=== PATIENT | female | born 1965 | race Caucasian/White ===

== ENCOUNTER 2016-11-10 20:04 | Emergency (ER) | payer OTHER ==
[~2016-11-10] VITALS: Ht 154.9 cm; Wt 55.0 kg
[~2016-11-10 20:04] MED LIST: BEYATAB PO; CYCL1TAB29 PO; SERT-129 PO; TRAZ100T4 PO
[2016-11-10 20:25] VITALS: BP 92/48; PULSE 52; RESP 20; O2SAT 98
[2016-11-10 20:30] VITALS: BP_SYST 104; BP_SYST 99; BP_DIAS 46; BP_DIAS 54; PULSE 53; RESP 20; O2SAT 97
[2016-11-10] MEDS ORDERED: ASPIRIN 81 MG CHEW TAB PO ONE (20:30)
[2016-11-10] MEDS ORDERED: SODIUM CHLOR 0.9% 1000 ML INJ 1,000 ML IV ONE (20:30)
[2016-11-10] MEDS ORDERED: PANTOPRAZOLE SODIUM 40 MG VIAL IV PUSH ONE (20:30)
--- NOTE | 2016-11-10 20:30 | PD ---
HPI Chief Complaint: Chest Pain Time Seen by Provider: 20:22 Travel History International Travel<30 days: No Contact w/Intl Traveler<30days: No Traveled to known affect area: No History of Present Illness HPI 51-year-old female presents to the emergency department by private transportation the care of her spouse for evaluation of retrosternal chest pain radiating into her back. Patient denies fever chills nausea vomiting sweats or shortness of breath. Patient also complains of upper abdominal pain. Patient is very upset because approximately one month ago she had a similar episode and was not seen at the time but followed up with her primary care provider who told her she may have had a heart attack and that she needed to have a stress test and to follow-up with a medical secretary receptionist. Patient has not been able to arrange this appointment. Patient also is being evaluated by her food trades assistants for possible abnormal vaginal bleeding with plan to have biopsy. Patient is concerned that she may have cancer. Patient denies any prior history of peptic ulcer disease call stones or biliary colic or pancreatitis. reports that she has been in a alcohol abstinence program for 11 months. Patient has no other substance history. Patient is a nonsmoker. Patient denies personal history of hypertension dyslipidemia diabetes or family history of premature onset heart disease. Patient also denies clotting disorder or recent protracted bedrest surgical procedure or long distance travel. Patient states that she actually runs a very low blood pressure as her normal blood pressure. Patient denies other concerns or complaints. Patient rates pain as severe. PFSH Past Medical History Narrative Medical Anxiety depression Social History Tobacco Use: No Allergies-Medications (Allergen,Severity, Reaction): Coded Allergies: No Known Allergies (Unverified , 10/29/16) Reported Meds & Prescriptions Reported Meds & Active Scripts Active Zofran Odt (Ondansetron Odt) 4 Mg Tab 4 Mg SL Q6HR PRN Trazodone (Trazodone HCl) 100 Mg Tab 100 Mg PO HS Beyaz (Drospirenone-Ethinyl Estradiol-Levomefolate) 3-0.02-0.451 Mg Tab 1 Tab PO DAILY Reported Sertraline (Sertraline HCl) 100 Mg Tab 100 Mg PO HS Review of Systems Except as stated in HPI: all other systems reviewed are Neg General / Constitutional: No: Fever, Chills HENT: No: Congestion Cardiovascular: No: Chest Pain or Discomfort Respiratory: No: Shortness of Breath ( ) Gastrointestinal: Positive: Abdominal Pain, No: Nausea, Vomiting Genitourinary: No: Flank Pain Musculoskeletal: No: Myalgias, Arthralgias Skin: No Rash Neurologic: No: Weakness Psychiatric: No: Anxiety Hematologic/Lymphatic: No: Easy Bruising Physical Exam Narrative GENERAL: Well-developed well-nourished female in apparent distress no respiratory distress tearful and keeping her eyes tightly closed SKIN: Warm and dry. HEAD: Normocephalic. EYES: No scleral icterus. No injection or drainage. NECK: Supple, trachea midline. No JVD or lymphadenopathy. CARDIOVASCULAR: Regular rate and rhythm without murmurs, gallops, or rubs. RESPIRATORY: Breath sounds equal bilaterally. No accessory muscle use. GASTROINTESTINAL: Abdomen soft, reproducible right upper quadrant tenderness to palpation, nondistended. MUSCULOSKELETAL: No cyanosis, or edema. Bilateral radial and dorsalis pedis pulses 2+ to palpation. BACK: Nontender without obvious deformity. Mild right-sided CVA tenderness. Data Data Last Documented VS Vital Signs Date Time Temp Pulse Resp B/P Pulse Ox O2 Delivery O2 Flow Rate FiO2 11/11/16 00:28 58 17 112/58 97 11/10/16 23:02 Room Air Orders Sodium Chlor 0.9% 1000 Ml Inj (Ns 1000 M (11/10/16 20:30) Electrocardiogram (11/10/16 20:22) Ckmb (Isoenzyme) Profile (11/10/16 20:22) Complete Blood Count With Diff (11/10/16 20:22) Comprehensive Metabolic Panel (11/10/16 20:22) Magnesium (Mg) (11/10/16 20:22) Prothrombin Time / Inr (Pt) (11/10/16 20:22) Act Partial Throm Time (Ptt) (11/10/16 20:22) Troponin I (11/10/16 20:22) Lipase (11/10/16 20:22) Chest, Single Ap (11/10/16 20:22) Ecg Monitoring (11/10/16 20:22) Bilateral Bp Monitoring (11/10/16 20:22) Iv Access Insert/Monitor (11/10/16 20:22) Oximetry (11/10/16 20:22) Oxygen Administration (11/10/16 20:22) Aspirin Chew (Aspirin Chew) (11/10/16 20:30) Pantoprazole Inj (Protonix Inj) (11/10/16 20:30) CKMB (11/10/16 20:27) CKMB% (11/10/16 20:27) D-Dimer (11/10/16 20:27) Us Abdomen Gallbladder (11/10/16 ) Urinalysis - C+S If Indicated (11/10/16 21:36) Ketorolac Inj (Toradol Inj) (11/10/16 21:45) Ondansetron Inj (Zofran Inj) (11/10/16 23:30) Morphine Inj (Morphine Inj) (11/10/16 23:30) Potassium Chloride (Kcl) (11/10/16 23:30) Urine Culture (11/10/16 23:15) Labs Laboratory Tests Test 11/10/16 11/10/16 20:27 23:15 White Blood Count 9.6 TH/MM3 Red Blood Count 4.17 MIL/MM3 Hemoglobin 11.8 GM/DL Hematocrit 35.2 % Mean Corpuscular Volume 84.5 FL Mean Corpuscular Hemoglobin 28.3 PG Mean Corpuscular Hemoglobin 33.4 % Concent Red Cell Distribution Width 12.8 % Platelet Count 279 TH/MM3 Mean Platelet Volume 8.0 FL Neutrophils (%) (Auto) 37.0 % Lymphocytes (%) (Auto) 48.7 % Monocytes (%) (Auto) 8.9 % Eosinophils (%) (Auto) 5.1 % Basophils (%) (Auto) 0.3 % Neutrophils # (Auto) 3.6 TH/MM3 Lymphocytes # (Auto) 4.6 TH/MM3 Monocytes # (Auto) 0.9 TH/MM3 Eosinophils # (Auto) 0.5 TH/MM3 Basophils # (Auto) 0.0 TH/MM3 CBC Comment DIFF FINAL Differential Comment Prothrombin Time 10.4 SEC Prothromb Time International 0.9 RATIO Ratio Activated Partial 20.7 SEC Thromboplast Time D-Dimer Quantitative (PE/DVT) 0.25 MG/L FEU Sodium Level 143 MEQ/L Potassium Level 3.1 MEQ/L Chloride Level 106 MEQ/L Carbon Dioxide Level 27.4 MEQ/L Anion Gap 10 MEQ/L Blood Urea Nitrogen 13 MG/DL Creatinine 0.83 MG/DL Estimat Glomerular Filtration 72 ML/MIN Rate Random Glucose 91 MG/DL Calcium Level 8.2 MG/DL Magnesium Level 2.0 MG/DL Total Bilirubin 0.4 MG/DL Aspartate Amino Transf 56 U/L (AST/SGOT) Alanine Aminotransferase 33 U/L (ALT/SGPT) Alkaline Phosphatase 49 U/L Total Creatine Kinase 562 U/L Creatine Kinase MB 3.7 NG/ML Creatine Kinase MB % 0.7 % Troponin I LESS THAN 0.02 NG/ML Total Protein 6.4 GM/DL Albumin 3.3 GM/DL Lipase 201 U/L Urine Color YELLOW Urine Turbidity CLEAR Urine pH 6.0 Urine Specific [place] 1.008 Urine Protein NEG mg/dL Urine Glucose (UA) NEG mg/dL Urine Ketones NEG mg/dL Urine Occult Blood NEG Urine Nitrite NEG Urine Bilirubin NEG Urine Leukocyte Esterase NEG Urine RBC 0-2 /hpf Urine WBC 0-2 /hpf Urine Squamous Epithelial 0-5 /hpf Cells Urine Bacteria MOD /hpf Microscopic Urinalysis Comment CULTURE INDICATED MDM Medical Decision Making Medical Screen Exam Complete: Yes Emergency Medical Condition: Yes Medical Record Reviewed: Yes Interpretation(s) Troponin I: Less than 0.02, not elevated CK: 562, elevated; CK-MB percent 0.7%, not elevated Last Impressions Chest X-Ray 11/10/162021 Signed Impressions: Service Date/Time: Thursday, November 10, 2016 20:41 - CONCLUSION: Normal examination for a patient of this age. Lauri Sahni MD CBC & BMP Diagram 11/10/16 20:27 Vital Signs Date Time Temp Pulse Resp B/P Pulse Ox O2 Delivery O2 Flow Rate FiO2 11/10/16 20:30 Room Air 11/10/16 20:30 Room Air 11/10/16 20:30 Room Air 11/10/16 20:30 53 20 99/46 97 Room Air 104/54 11/10/16 20:25 52 20 92/48 98 Differential Diagnosis Chest pain, ACS, CT, cholecystitis, pancreatitis also to consider gastritis peptic ulcer disease aneurysm or aortic dissection Narrative Course Patient placed on monitoring manager IV access obtained. Specimens collected and sent for resulting EKG performed sinus bradycardia rate [address] elevation or injury pattern or ectopy noted. Blood pressure hypotensive 96/46 with heart rate of 46 possibly reflective of patient's chronic history of low blood pressure as well as possible pain related vasovagal event; normal saline bolus administered; aspirin 162 mg administered; Protonix 40 mg IV given. Patient reports clinically improved mild discomfort reports discomfort 2-3/10 after Toradol Ultrasound is consistent with diffuse thickening of the gallbladder with trace fluid consistent with acute or chronic cholecystitis; case discussed with on- call surgeon Dr. Talbot as patient is not having marked pain at this time after he Toradol --recommends x 1 dose of narcotic in the ED if pain resolved requests that patient be seen in the office this week and to call office on Saturday to schedule follow-up appointment on Saturday with recommendation to follow low fat no fried food diet and to return to the emergency department for any concerns or recurrence of symptoms. Patient does not want to be admitted and is amenable to this plan and recommendation by the surgeon. Physician Communication Physician Communication discussed with Dr Talbot --discharge to home will see in the office call on Saturday for appointment Saturday Diagnosis Primary Impression: Biliary colic Additional Impression: Chronic cholecystitis without calculus Referrals: Ernie Talbot MD 3 days Patient Instructions: Narcotic given in the ED, General Instructions Departure Forms: Tests/Procedures, Work Release Special Instructions: No work 2 days Additional Instructions: Follow low fat no fried or fatty food diet Recommend clear liquids to advance to bland diet over the next 24-48 hours Follow-up with general surgeon Dr. Talbot as previously discussed during ED visit call office on Saturday to schedule follow-up appointment visit this week Return to the emergency department for pain fever vomiting or any concerns Monitor temperature every 4 hours with thermometer take acetaminophen as needed for fever 100.4 Fahrenheit or greater Takes Zofran as prescribed as needed for nausea and/or vomiting No work 2 days Med/Other Pt SpecificInfo: Prescription(s) given Scripts Ondansetron Odt (Zofran Odt)4 Mg Tab4 Mg SL Q6HR PRN (Nausea/Vomiting) #10 TAB Ref 0 Prov:Rosario Jay MD 11/11/16 Disposition: 01 DISCHARGE HOME Condition: Stable Rosario Jay MD Nov 10, 2016 20:30
[2016-11-10 20:37] LABS: AUTOMATED NEUTROPHIL # 3.6 TH/MM3 (1.8-7.7); BASOPHIL % 0.3 % (0.0-2.0); EOSINOPHIL # 0.5 TH/MM3 (0-0.4); EOSINOPHIL % 5.1 % (0.0-4.0); HEMATOCRIT 35.2 % (35.0-46.0); HEMO FLAGS DIFF FINAL; LYMPH % 48.7 % (9.0-44.0); LYMPHOCYTE # 4.6 TH/MM3 (1.0-4.8); MEAN CELL VOLUME 84.5 FL (80.0-100.0); MEAN CORPUSCULAR HEMOGLOBIN 28.3 PG (27.0-34.0); MEAN CORPUSCULAR HGB CONC 33.4 % (32.0-36.0); MONO % 8.9 % (0.0-8.0); PLATELET COUNT 279 TH/MM3 (150-450); RED BLOOD COUNT 4.17 MIL/MM3 (4.00-5.30); RED CELL DISTRIBUTION WIDTH 12.8 % (11.6-17.2); WHITE BLOOD COUNT 9.6 TH/MM3 (4.0-11.0)
[2016-11-10 20:44] LABS: CHLORIDE 106 MEQ/L (98-107); POTASSIUM 3.1 MEQ/L (3.5-5.1); SODIUM (NA) 143 MEQ/L (136-145)
[2016-11-10 20:48] LABS: ANION GAP 10 MEQ/L (5-15); BICARBONATE 27.4 MEQ/L (21.0-32.0); BLOOD UREA NITROGEN 13 MG/DL (7-18)
[2016-11-10] MEDS ORDERED: SERT-129 PO (20:50)
--- NOTE | 2016-11-10 20:50 | RADHPO ---
EXAM DATE/TIME: 11/10/2016 20:41 [facility] COMPARISON: No previous studies available for comparison. INDICATIONS : Patient states chest pains. MEDICAL HISTORY : None. SURGICAL HISTORY : None. ENCOUNTER: Initial ACUITY: 1 day PAIN SCORE: 6/10 LOCATION: Bilateral chest FINDINGS: A single view of the chest demonstrates the lungs to be symmetrically aerated without evidence of mas s, infiltrate or effusion. The cardiomediastinal contours are unremarkable. Osseous structures are intact.CONCLUSION: Normal examination for a patient of this age. Lauri Sahni MD on November 10, 2016 at 20:48 Board Certified Radiologist. This report was verified electronically.
[2016-11-10 20:51] LABS: ALT (GPT) 33 U/L (10-53); AST (GOT) 56 U/L (15-37); GLOMERULAR FILTRATION RATE 72 ML/MIN (>89)
[2016-11-10 20:52] LABS: TOTAL BILIRUBIN ADULT 0.4 MG/DL (0.2-1.0)
[2016-11-10 20:53] LABS: ALKALINE PHOSPHATASE 49 U/L (45-117); CREATINE KINASE 562 U/L (26-192)
[2016-11-10 20:56] LABS: APTT (PATIENT) 20.7 SEC (24.3-30.1); INTERNATIONAL NORMALIZED RATIO 0.9 RATIO; PROTHROMBIN TIME - PATIENT 10.4 SEC (9.8-11.6)
[2016-11-10 21:07] LABS: CKMB 3.7 NG/ML (0.5-3.6)
[2016-11-10] MEDS ORDERED: KETOROLAC TROMETHAMINE 30 MG/ML (IVP) VIAL IV PUSH ONE (21:45)
[2016-11-10 22:00] VITALS: BP 104/59; PULSE 58; RESP 17; O2SAT 95
--- NOTE | 2016-11-10 23:00 | RADHPO ---
EXAM DATE/TIME: 11/10/2016 22:09 [facility] COMPARISON: No previous studies available for comparison. EXTERNAL COMPARISON : [facility], US PELVIC AND TRANSVAGINAL, November 02, 2016 INDICATIONS : Right upper quadrant pain. MEDICAL HISTORY : Depression. Right upper quadrant pain. Chest pain. SURGICAL HISTORY : Tubal ligation. section. ENCOUNTER: Initial ACUITY: 1 day PAIN SCORE: 10/10 LOCATION: Right upper quadrant MEASUREMENTS: LIVER: 15.7 cm length COMMON DUCT: 5 mm RIGHT KIDNEY: 11.2 x 4.3 x 5.0 cm FINDINGS: LIVER: Normal echotexture without focal lesion or ductal dilatation. The is no evidence of ascites. The port al system is patent. COMMON DUCT: No intraluminal mass or stone visualized. GALLBLADDER: No definite gallstones are seen. However, there is thickening of the gallbladder wall 3 mm with a tra ce of fluid adjacent to the gallbladder. PANCREAS: The visualized portions are within normal limits. Mild prominence of the pancreatic duct a 2 mm. RIGHT KIDNEY: No evidence of hydronephrosis, stone, or mass. There is a cyst along the midpole measuring 1.6 cm. CONCLUSION: 1. There is diffuse thickening of the gallbladder wall with a trace of fluid adjacent to the gallblad stacy. This can be seen with acute or chronic cholecystitis. Recommend correlation with patient's physi lee and clinical exam. 2. Benign-appearing right renal cyst. Lauri Sahni MD on November 10, 2016 at 22:56 Board Certified Radiologist. This report was verified electronically.
[2016-11-10 23:01] VITALS: BP 106/52; PULSE 55; RESP 17; O2SAT 96
[2016-11-10 23:19] LABS: BLOOD, URINE NEG (NEG); GLUCOSE,URINE NEG (NEG); KETONE, URINE NEG (NEG); NITRITE,URINE NEG (NEG)
[2016-11-10 23:23] LABS: URINE COLOR YELLOW (YELLW/STRAW)
[2016-11-10 23:25] LABS: BACTERIA, URINE MOD /hpf; COMMENT (UR) CULTURE INDICATED; CULTURE IF INDICATED CULTURE INDICATED; RBC, URINE 0-2 /hpf (0-3); SQUAMOUS EPITHELIAL CELL URINE 0-5 /hpf (0-5); WBC, URINE 0-2 /hpf (0-5)
[2016-11-10] MEDS ORDERED: POTASSIUM CHLORIDE 20 MEQ CONTROLLED RELEASE TAB PO ONE (23:30)
[2016-11-10] MEDS ORDERED: MORPHINE SULFATE 4 MG/ML INJ IV PUSH ONE (23:30)
[2016-11-10] MEDS ORDERED: ONDANSETRON HCL 4 MG/2 ML VIAL IV PUSH ONE (23:30)
[2016-11-10 23:43] VITALS: RESP 17
[2016-11-10] MEDS ORDERED: ZOFR4TAB3 SL (23:54)
[2016-11-11] MEDS ORDERED: ZOFR4TAB3 SL (00:13)
[2016-11-11 00:28] VITALS: BP 112/58
--- NOTE | 2016-11-11 10:31 | EKG ---
Date Performed: 11/10/2016 Time Performed: 20:10:26 PTAGE: 51 years EKG: Sinus bradycardia Normal ECG except for rate NO PREVIOUS TRACING DOCTOR: Danisha Hay Interpretating Date/Time 11/11/2016 10:26:17
[2016-11-27] MEDS ORDERED: BUSP5TAB PO (15:10)
== END 2016-11-11 00:29 | disposition home or self-care (01) ==
LOC: PHED 20:04
DX: K80.44 Calculus of bile duct with chronic cholecystitis without obstruction (principal); R00.1 Bradycardia, unspecified; R10.9 Unspecified abdominal pain; F41.9 Anxiety disorder, unspecified; F32.9 Major depressive disorder, single episode, unspecified; Z79.899 Other long term (current) drug therapy
CPT/HCPCS: 71010; 76705; 80053; 81001; 82550; 82552; 83690; 83735; 84484; 85025; 85379; 85610; 85730; 87086; 93005; 96361; 96374; 96375; 99285; C9113; J1885; J2270; J2405; J7030

== ENCOUNTER 2017-04-15 23:07 | Emergency (ER) | payer OTHER ==
[~2017-04-15] VITALS: Ht 154.9 cm; Wt 50.3 kg
[~2017-04-15 23:07] MED LIST changes: +BUSP5TAB PO; -CYCL1TAB29 PO; +IOHEXOL 350 MG/ML 10 ML VIAL (for RAD DIAG) IVCONTRAST ONE; +TRAZ100T6 PO; +ZOFR4TAB3 SL
[2017-04-15 23:12] VITALS: BP 109/72; PULSE 74; RESP 18; TEMP 97.9; O2SAT 97
[2017-04-16] MEDS ORDERED: TRAM50TA PO (05:11)
[2017-04-16] MEDS ORDERED: KETOROLAC TROMETHAMINE 30 MG/ML (IVP) VIAL IV PUSH ONE (06:00)
[2017-04-16] MEDS ORDERED: SODIUM CHLORIDE 0.9% FLUSH 10 ML FLUSH IV FLUSH PRN (06:00)
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
[2017-04-16 06:55] LABS: AUTOMATED NEUTROPHIL # 2.9 TH/MM3 (1.8-7.7); BASOPHIL # 0.1 TH/MM3 (0-0.2); BASOPHIL % 1.6 % (0.0-2.0); EOSINOPHIL # 0.2 TH/MM3 (0-0.4); HEMATOCRIT 36.1 % (35.0-46.0); HEMO FLAGS DIFF FINAL; LYMPH % 33.6 % (9.0-44.0); LYMPHOCYTE # 1.9 TH/MM3 (1.0-4.8); MEAN CELL VOLUME 85.6 FL (80.0-100.0); MEAN CORPUSCULAR HEMOGLOBIN 28.8 PG (27.0-34.0); MEAN CORPUSCULAR HGB CONC 33.6 % (32.0-36.0); MONO % 7.7 % (0.0-8.0); NEUT % 54.1 % (16.0-70.0); PLATELET COUNT 249 TH/MM3 (150-450); RED BLOOD COUNT 4.21 MIL/MM3 (4.00-5.30); RED CELL DISTRIBUTION WIDTH 12.9 % (11.6-17.2); WHITE BLOOD COUNT 5.5 TH/MM3 (4.0-11.0)
[2017-04-16 06:57] LABS: BLOOD, URINE NEG (NEG); GLUCOSE,URINE NEG (NEG); KETONE, URINE NEG (NEG); NITRITE,URINE NEG (NEG); PH, URINE 6.5 (5.0-8.5)
[2017-04-16 06:58] LABS: METHOD OF COLLECTION CLEAN CATCH; URINE COLOR YELLOW (YELLW/STRAW)
[2017-04-16 07:02] LABS: POTASSIUM 3.7 MEQ/L (3.5-5.1)
[2017-04-16 07:03] LABS: BACTERIA, URINE MOD /hpf; COMMENT (UR) CULTURE INDICATED; CULTURE IF INDICATED CULTURE INDICATED; SQUAMOUS EPITHELIAL CELL URINE 0-5 /hpf (0-5)
[2017-04-16 07:05] LABS: BICARBONATE 23.2 MEQ/L (21.0-32.0)
--- NOTE | 2017-04-16 07:48 | RADRPT ---
EXAM DATE/TIME: 04/16/2017 17:27 [place] COMPARISON: US ABDOMEN - GALLBLADDER, November 10, 2016, 22:09. INDICATIONS : Left sided abdominal pain. IV CONTRAST: 85 cc Omnipaque 350 (iohexol) IV ORAL CONTRAST: No oral contrast ingested. RADIATION DOSE: 4.76 CTDIvol (mGy) MEDICAL HISTORY : None SURGICAL HISTORY : Tubal ligation. ENCOUNTER: Initial ACUITY: 3 weeks PAIN SCALE: 9/10 LOCATION: Left abdomen TECHNIQUE: Volumetric scanning of the abdomen and pelvis was performed. Using automated exposure control and ad justment of the mA and/or kV according to patient size, radiation dose was kept as low as reasonably achievable to obtain optimal diagnostic quality images. DICOM format image data is available electro nically for review and comparison. FINDINGS: LOWER LUNGS: The visualized lower lungs are clear. LIVER: Homogeneous density without lesion. There is no dilation of the biliary tree. No calcified gallston es. SPLEEN: Normal size without lesion. PANCREAS: Within normal limits. KIDNEYS: 1-2 mm calcified calculus in the inferior pole of the right kidney. Otherwise, the kidneys demonstrat e symmetrical enhancement without evidence for hydronephrosis. There is an indeterminate density 1.5 x 1.5 cm hypodense cystic lesion in the medial mid left renal pole. Similar appearance 1.0 x 1.1 cm i ndeterminate density cystic lesion in the mid right kidney as well. This appeared simple anechoic on recent abdominal ultrasound exam. ADRENAL GLANDS: Within normal limits. VASCULAR: There is no aortic aneurysm. BOWEL/MESENTERY: The stomach, small bowel, and colon demonstrate no acute abnormality. Appendix is not directly visua lized. However, No significant inflammatory changes noted in the pericecal region. There is no free i ntraperitoneal air or fluid. ABDOMINAL WALL: Within normal limits. RETROPERITONEUM: There is no lymphadenopathy. BLADDER: Distended but otherwise unremarkable. REPRODUCTIVE: Within normal limits. INGUINAL: There is no lymphadenopathy or hernia. MUSCULOSKELETAL: Within normal limits for patient age. CONCLUSION: 1. No acute abnormality to explain patient's abdominal pain. 2. Appendix is not directly visualized. No significant inflammatory change in the right lower quadran t. 3. 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 See below. For renal cystic lesions meeting Bosniak IIF characteristics, after non-neoplastic considerations suc h as infection have been excluded, the following general guidelines are offered: Contrast-enhanced C T or MRI at 6 months and 12 months, then yearly for five years if stable. The intervals and duration may be varied, such as longer intervals if the lesion is unchanged and longer duration for greater as surance. In younger patients, early surgical intervention may be considered. In patients with co-mo rbidities or limited life expectancy, cystic Bosniak IIF lesions <1.5 cm may not require further eval uation. These general recommendations do not apply to all patients, so that correlation with clinic al information is required. Reference: [employer], Jarett SG, Renae GÓMEZ et al; Managing Incidental Findings on Abdominal CT: White Paper of the ACR Incidental Findings Committee. J Am Julianne Radiol 2 010;7:754-773. 1. Gama Eaton MD on April 16, 2017 at 7:32 Board Certified Radiologist. This report was verified electronically.
[2017-04-16 07:55] VITALS: BP 122/63; PULSE 59; RESP 14; O2SAT 99
[2017-04-16] MEDS ORDERED: BACT800T5 PO (08:56)
[2017-04-16] MEDS ORDERED: PERC5TAB12 PO (08:56)
[2017-04-16] MEDS ORDERED: IBUP-232 PO (08:56)
[2017-04-16] MEDS ORDERED: MORPHINE SULFATE 4 MG/ML INJ IV PUSH ONE (09:00)
[2017-04-16] MEDS ORDERED: SODIUM CHLORID 0.9% 500 ML INJ 500 ML IV ONE (09:00)
[2017-04-16] MEDS ORDERED: cefTRIAXone INJ 1,000 MG in SODIUM CHLORIDE 0.9% INJ 100 ML IV ONE (09:00)
[2017-04-16 10:30] VITALS: BP 118/62; PULSE 62; RESP 14; O2SAT 98
[2017-04-16 15:50] LABS: CHLAMYDIA PCR NOT DETECTED (NOT DETECT); NEISSERIA PCR NOT DETECTED (NOT DETECT)
[2017-04-29] MEDS ORDERED: SERT-129 PO (22:27)
== END 2017-04-16 10:38 | disposition home or self-care (01) ==
LOC: PHED 23:07
DX: R10.32 Left lower quadrant pain (principal); N39.0 Urinary tract infection, site not specified; N28.1 Cyst of kidney, acquired; R07.9 Chest pain, unspecified
CPT/HCPCS: 74177; 80048; 81001; 85025; 87086; 87210; 87491; 87591; 96365; 96375; 99285; J0696; J1885; J2270; J7040; Q9967